=== PATIENT | female | born 1970 | race Caucasian/White ===

== ENCOUNTER → 2017-10-06 | Outpatient (CLI) | payer BC ==
[~2017-10-06] MED LIST: PEDICHW53 PO
--- NOTE | 2017-10-06 09:37 | DIAGNOSTIC IMAGING REPORT ---
L SHOULDER MIN 2 VIEWS ROUTINE HISTORY: 47 years-old Female M25.512 acute left shoulder pain COMPARISON: None available TECHNIQUE: 3 views of the left shoulder FINDINGS: Mild glenohumeral and acromioclavicular osteoarthritis. There is no acute fracture, dislocation or intra-articular loose body identified. Imaged soft tissues and lung espinosa appear unremarkable. IMPRESSION: Mild degenerative changes without acute fracture or dislocation. The above report was generated using voice recognition software. It may contain grammatical, syntax or spelling errors. Electronically signed by: Juan Powell M.D. 10/06/2017 9:35 AM Dictated Date/Time: 10/06/2017 9:34 AM
--- NOTE | 2017-10-06 09:39 | DIAGNOSTIC IMAGING REPORT ---
SI JOINTS 3 OR MORE VIEWS HISTORY: 47 years-old Female HIP PAIN acute right hip and sacroiliac pain. COMPARISON: None available TECHNIQUE: 3 views of the SI joints FINDINGS: There are mild degenerative changes of the bilateral sacroiliac joints and pubic symphysis. No evidence of erosive sacroiliitis. There is no acute fracture or dislocation. Surgical clips project over the pelvis. Degenerative changes of the lower lumbar spine are noted. Probable phleboliths of the pelvis. IMPRESSION: Mild degenerative changes of the sacroiliac joints without acute fracture, dislocation or sacroiliitis. The above report was generated using voice recognition software. It may contain grammatical, syntax or spelling errors. Electronically signed by: Juan Powell M.D. 10/06/2017 9:37 AM Dictated Date/Time: 10/06/2017 9:36 AM
[2017-10-09 20:20] LABS: ANTI-CENTROMERE AB <1.0 NEG AI (<1.0 NEG); ANTI-SS-A <1.0 NEG AI (<1.0 NEG); ANTI-SS-B <1.0 NEG AI (<1.0 NEG); DNA ds CRITHIDIA NEGATIVE (NEGATIVE); HLA-B27** TC 528X NEGATIVE (NEGATIVE); Sm Antibody <1.0 NEG AI (<1.0 NEG)
== END | disposition home or self-care (01) ==
LOC: C.RAD1850 09:14
PROVIDERS: ATTEND Internal Medicine Rheumatology
DX: M25.512 Pain in left shoulder (principal)

== ENCOUNTER → 2017-10-19 | Outpatient (CLI) | payer BC ==
--- NOTE | 2017-10-19 18:17 | DIAGNOSTIC IMAGING REPORT ---
SI JOINTS WITHOUT CLINICAL HISTORY: 47 years-old Female presenting with M53.3 Pain of right sacroiliac joint. TECHNIQUE: Multisequence, multiplanar MR imaging of the sacroiliac joints was performed without the use of intravenous contrast. IV contrast: None. COMPARISON: Plain radiographs of the sacroiliac joints from 10/06/2017. FINDINGS: Localizer images: Unremarkable. The bilateral sacroiliac joints do not contain fluid. No bone marrow edema. No evidence of erosion or fusion. Normal bone marrow signal intensity throughout the visualized pelvis. Mild degenerative changes, including osteophytosis better appreciated on prior radiograph. Normal appearance of the sciatic nerves. Visualized soft tissues of the pelvis demonstrate large stool burden in the rectum and both in cysts in the cervix. IMPRESSION: No MR evidence of abnormality of the sacroiliac joints. No sacroiliitis. Electronically signed by: Irvin Melgoza M.D. 10/19/2017 6:16 PM Dictated Date/Time: 10/19/2017 6:12 PM
== END | disposition home or self-care (01) ==
LOC: C.MRI 17:00 → MERGE 17:30
PROVIDERS: ATTEND Internal Medicine Rheumatology
DX: M53.3 Sacrococcygeal disorders, not elsewhere classified (principal)

== ENCOUNTER → 2017-10-28 | Outpatient (CLI) | payer BC ==
--- NOTE | 2017-10-28 18:47 | DIAGNOSTIC IMAGING REPORT ---
MRI OF THE LEFT SHOULDER CLINICAL HISTORY: Left shoulder pain. Decreased range of motion. Unspecified immunologic abnormality. COMPARISON STUDY: Radiographs of the left shoulder dated 10/06/2017. TECHNIQUE: MRI of the left shoulder was performed utilizing various T1 and T2 weighted sequences in the axial, sagittal, coronal planes. IV contrast was not administered for this examination. FINDINGS: Rotator cuff: The supraspinatus and intraspinous tendons are preserved. The teres minor and subscapularis tendons are intact. There is no subacromial or subdeltoid bursal fluid. Mild productive degenerative change is seen at the acromioclavicular joint. Biceps tendon: The long head of the biceps tendon is normal in signal intensity and located within the bicipital groove. The anchor is maintained. Labrum: Grossly intact. Shoulder joint: There is no joint effusion. The articular cartilage over the glenoid is well maintained. No erosive change is identified. No significant marrow edema is seen. Musculature and soft tissues: The musculature of the shoulder is normal in bulk and signal intensity. No atrophy is seen. IMPRESSION: 1. The rotator cuff is intact. 2. The long head of the biceps tendon is maintained. 3. No acute bony abnormality is seen. 4. Productive degenerative change is noted at the acromioclavicular joint. Electronically signed by: Romulo Hernandez M.D. 10/28/2017 6:45 PM Dictated Date/Time: 10/28/2017 6:40 PM
== END | disposition home or self-care (01) ==
LOC: C.MRI 17:47
PROVIDERS: ATTEND Internal Medicine Rheumatology
DX: M25.512 Pain in left shoulder (principal); M47.818 Spondylosis without myelopathy or radiculopathy, sacral and sacrococcygeal region; M35.7 Hypermobility syndrome; R89.4 Abnormal immunological findings in specimens from other organs, systems and tissues

== ENCOUNTER → 2018-01-04 | Day surgery (SDC) | payer BC ==
[2017-12-15 07:48] VITALS: Ht 149.9 cm; Wt 68.2 kg
[~2018-01-04] VITALS: Ht 149.9 cm; Wt 68.2 kg
[~2018-01-04] MED LIST changes: +ATROPINE SULFATE 0.1 MG/ML 5ML SYR IV PRN; +BUPIVACAINE/EPINEPHRINE 0.25% 1:200,000 30 ML VIAL ONE; +CEFAZOLIN 2000MG IV PUSH 15 ML IV SCH; +CHOL1000 PO; +CLR10 PO; +CYAN10005 PO; +DEXAMETHASONE SOD INJ 4 MG/ML VIAL ONE; +EpHEDrine SULFATE INJ 50 MG/ML AMP IV PRN; +EpINEphrine INJ 1MG/ML AMP 1 MG/ML AMP ONE; +FENTANYL CITRATE INJ 50 MCG/1 ML 2 ML VIAL IV PRN; +FENTANYL CITRATE INJ 50 MCG/1 ML 2 ML VIAL ONE; +FEXO1TAB45 PO; +LACTATED RINGER'S 1000ML 1,000 ML IV SCH; +LIDOCAINE HCL 2% 2 ML VIAL (20MG/ML) ONE; +METHYLPREDNISOLONE ACETATE 80 MG/ML VIAL ONE; +MIDAZOLAM HCL 1 MG/ML 2ML VIAL ONE; +MoRPHine SULFATE 2 MG/ML CARP IV PRN; +MoRPHine SULFATE 4 MG/ML 1 ML CARP\\VIAL IV PRN; +ONDANSETRON INJ 2 MG/ML 2 ML VIAL IV PRN; +ONDANSETRON INJ 2 MG/ML 2 ML VIAL ONE; +OXYCODONE/ACETAMINOPHEN 5-325 TAB PO PRN; +PROMETHAZINE HCL INJ 6.25 MG in SODIUM CHLORIDE 0.9% 50ML 50 ML IV PRN; +PROPOFOL IV EMULSION 10 MG/ML 20 ML VIAL IV ONE; +SCOPOLAMINE 1.5 MG TDSY TD ONE; +SODIUM CHLORIDE 0.9% 1000ML 1,000 ML IV SCH
--- NOTE | 2018-01-04 06:47 | History & Physical Bridge - SC ---
H&P Re-Evaluation Bridge Note: I have examined the patient, reviewed the History & Physical and in the interval since the performance of the History & Physical I have noted the following changes of clinical significance: No changes noted
--- NOTE | 2018-01-04 09:58 | [facility] Post Operative Brief Note ---
Immediate Operative Summary Operative Date Jan 04, 2018. Pre-Operative Diagnosis Left Shoulder Subacromial Spur, Bursitis Post-Operative Diagnosis same and partial thickness supraspinatus tear Procedure(s) Performed Left shoulder arthroscopic debridement of partial thickness supraspinatus tear, subacromial bursectomy and decompression Surgeon Dr. Chloé Wolfe Yield Engineer Surgeon(s) Alessio Samuels Pa-C, Nimco Carmona, Medical Student Estimated Blood Loss 10 Findings Consistent with Post-Op Diagnosis Fluids (cc crystalloids) 1100 cc Specimens none Drains None Anesthesia Type General Regional Complication(s) none Disposition Accompanied Pt To Recovery: no Disposition: Recovery Room / PACU
--- NOTE | 2018-01-04 10:29 | [facility] Operative Report ---
Operative Report Operative Date Jan 04, 2018. Pre-Operative Diagnosis Left shoulder arthroscopic subacromial decompression, debridement partial thickenss rotator cuff tear Post-Operative Diagnosis same and partial thickness supraspinatus tear Procedure(s) Performed Left shoulder arthroscopic debridement of partial thickness supraspinatus tear, subacromial bursectomy and decompression Surgeon Dr. Chloé Wolfe Chain Pegger Surgeon(s) Alessio Samuels Pa-C, Nimco Carmona, Medical Student Estimated Blood Loss 10ML Fluids 1100 cc Specimens none Drains None Anesthesia Type General Regional Complication(s) none Disposition no Recovery Room / PACU I attest to the content of the Intraoperative Record and any orders documented therein. Any exceptions are noted below.
--- NOTE | 2018-01-04 10:31 | Medical Student: [facility] ---
Immediate Operative Summary Operative Date Jan 04, 2018. Pre-Operative Diagnosis Left shoulder bursitis and subacromial spur Post-Operative Diagnosis L shoulder bursitis, subacromial spur, partial thickness supraspinatus tear Procedure(s) Performed Arthroscopy of the left shoulder with debridement of the partial thickness supraspinatus tear and subacromial bursectomy and decompression Surgeon Dr. Wolfe Strategic Consultant Surgeon(s) GAGE Samuels PA-C and Nimco Carmona, medical student Estimated Blood Loss 10cc Findings Partial thickness left supraspinatus tear Hemorrhagic bursitis in the left subacromial space Left subacromial spur Fluids (cc crystalloids) 1100cc Specimens No specimens collected Drains None Anesthesia General with regional block Complication(s) None Disposition Recovery Room / PACU
--- NOTE | 2018-01-04 10:35 | Discharge Instructions ---
Discharge Instructions Date of Service Jan 04, 2018. Admission Reason for Admission: Left Shoulder Subacromial Spur; Bursitis Discharge Discharge Diagnosis / Problem: Same as above & partial thickness tear of supraspinatus Discharge Goals Goal(s): Decrease discomfort, Improve function, Increase independence Activity Recommendations Activity Limitations: as noted below Lifting Limitations: until after follow-up appointment Exercise/Sports Limitations: until after follow-up appointment May Resume Sexual Activity: when tolerated Shower/Bathe: tomorrow, keep incision dry Driving or Machine Use: Not until cleared by provisioning specialist Weightbearing Status: Left non-weightbearing (Upper extremity until protocol given in PT tomorrow) . Instructions / Follow-Up Instructions / Follow-Up Post-operative Instructions Dear Patient and Family/Friends, Before you are discharged from the hospital, it is important to know what to expect when you get home after surgery. To that end, we have created this sheet of discharge instructions which covers many commonly asked questions. Make sure you go through this sheet in its entirety with your nurse before you are discharged. Please note that we will go over the specifics of your surgery and recovery when you return for your first post-operative visit. Sincerely, Dr. Wolfe Pain Expect to be in a fair amount of pain after surgery. Remember, our goal is not to eliminate your pain, but to make it tolerable. It is a good idea to stay ahead of your pain by taking the medications you were prescribed once you get home. Typically, the pain starts improving 3-7 days after surgery. You should start weaning off the narcotic pain medication (oxycodone, hydrocodone, hydromorphone, morphine) as soon as your pain improves. Please call our office if your pain is not adequately controlled. Ice Ice your operative site at least 5 times a day for 15-30 minutes at a time. Make sure you have a thin cloth between the ice or cooling unit and your skin to prevent lyman bite. This is especially important if you received a nerve block. Continue icing your operative site for the first 5-7 days after surgery , then as needed. Diet/Nausea/Vomiting Start by drinking clear liquids and eating crackers. If you can tolerate this, then you may resume your normal diet. If you feel nauseated or vomit, take Zofran/ondansetron (if prescribed). Please call our office if you have intractable nausea or vomiting, or, if after hours, you may go to the Emergency Room for help. Constipation Constipation is a common side effect of narcotic pain medication. If you have not had a bowel movement within 2 days after surgery, we recommend purchasing an over the counter laxative such as Milk of Magnesia, Dulcolax, or Miralax from a local pharmacy, and taking it as instructed. Call our clinic if any questions. Slings and Braces If you were placed in a sling or brace, it must be worn at all times, including sleep. You may remove your sling or brace for physical therapy, home exercises , and showering. The length of time you will be in your brace and range of motion restrictions depends on what surgery you had; these details will be reviewed at your first post-operative appointment. Nerve block The anesthesia team sometimes places a nerve block to help with post-operative pain control. This results in significant numbness and inability to move the extremity. The nerve block usually wears off in 8-12 hours, but sometimes can last up to 24 hours. Please call our office if you are still unable to move your extremity after 24 hours, unless you received a pain pump to take home. Nerve blocks typically wear off quickly, so start taking pain medication as soon as you start feeling soreness near your surgical site. Weight bearing and Range of Motion. Do not bear any weight through your operative extremity immediately after surgery. If you had upper extremity surgery, do not lift anything with that arm. If you are in a knee brace, keep it locked in place until your follow-up. We will discuss your weight bearing, range of motion, and lifting restrictions in detail at your first post-operative appointment. Continuous Passive Motion (CPM) Machine If you were prescribed a CPM machine, it will start after your first post- operative appointment, at which time we will give you instructions on the range of motion settings and duration of treatment Physical therapy You will be given a prescription for physical therapy or occupational therapy at your first post-operative appointment. Typically, patients start therapy within 1 week of surgery Wound care and showering We will inspect your wound at your first post-operative visit, and may do a dressing change at that time. Most patients will be in a water-proof dressing that is removed 14 days after surgery. It is normal to see some dried blood on the dressing. Do not remove your dressing, paper strips or sutures yourself unless you are given permission. Showering is allowed the day after surgery. Do not scrub or remove any dressings. The wound should not be submerged underwater (i.e. in a bathtub or pool) until 4 weeks after surgery MARBELLA stockings If you were given white stockings, these are to be worn at all times except to shower (on both legs) for the first 2 weeks after surgery. Driving You may not drive while taking narcotic pain medication or while in a cast, splint, sling or brace. You, the patient, need to make the final determination about when you are safe to drive, however, the earliest you may consider driving after surgery is below: Hand/Wrist/Elbow Surgery: 3 days Shoulder Surgery: 2 weeks Hip,/Knee/Ankle Surgery: 4 weeks Fracture repair: 6 weeks Return to Work Your return to work depends on what surgery was done and what type of work you do. Please bring any paperwork your employer needs completed to your first post -operative visit. Also, bring a description of your job duties, as this helps us to understand what risks you may face at work. Travel Avoid long distance travel (greater than 1 hour) in airplanes and cars for the first 6 weeks after surgery. If you must travel, you need to have a Doppler ultrasound done before you travel to rule out a blood clot in your legs. Follow-up You should have a follow-up appointment already scheduled 1-2 days after surgery. If not, please contact our office to make this appointment before you leave the hospital. When to call the office It is normal to have swelling and bruising in the limb that was operated on. This will improve with time. It is also normal to have fevers for the first 2 days after surgery. Reasons you should call your doctor include: Uncontrolled pain; Nausea, vomiting, or constipation that does not improve with medication; Fevers over 101.5, chills, sweats; Drainage or bleeding from the wound; Foul odor; Spreading areas of redness; Any other concerns Current Hospital Diet Patient's current hospital diet: Discharge Diet Recommended Diet: Regular Diet Procedures Procedures Performed: Left shoulder arthroscopic debridement of partial thickness supraspinatus tear, subacromial bursectomy and decompression Pending Studies Studies pending at discharge: no Medical Emergencies . Who to Call and When: Medical Emergencies: If at any time you feel your situation is an emergency, please call 911 immediately. . Non-Emergent Contact Non-Emergency issues call your: Primary Care Provider Call Non-Emergent contact if: you have a fever, temperature is above 101.5, your pain is not controlled, your pain is worsening, wound has increased drainage, you have any medication questions . "Provider Documentation" section prepared by Alessio Samuels. . VTE Core Measure Inpt VTE Proph given/why not?: Other Anticoagulation (Aspirin EC 81 mg), T.E.Ana Epstein [place] Drug Monitoring Program Search Results: patient reviewed within database, no issues identified, see additional documentation
--- NOTE | 2018-01-04 10:38 | OPERATIVE REPORT ---
DATE OF OPERATION: 01/04/2018 PREOPERATIVE DIAGNOSIS: Left shoulder subacromial bursitis and spur. POSTOPERATIVE DIAGNOSES: Same and partial thickness supraspinatus tear. OPERATIONS PERFORMED: 1. Debridement of partial thickness supraspinatus tear. 2. Subacromial bursectomy with subacromial decompression of the spur. SURGEON: Irvin Wolfe MD. ASSISTANTS: RUBEN Stern and Nimco Carmona. IV FLUIDS: 1100 mL crystalloid. ESTIMATED BLOOD LOSS: 10 mL. IMPLANTS: None. SPECIMENS: None. COMPLICATIONS: None. INDICATIONS: Ms. Pierson is a 47-year-old female with a medical history of rheumatoid arthritis who has had left shoulder pain that has been refractory to conservative management. I had previously given her a subacromial injection which relieved her pain immediately with the numbing medication; however, the corticosteroid component did not give her any long lasting relief unfortunately. She has gone through physical therapy. She has difficulty with overhead activities. It is affecting her activities of daily living. Her MRI shows some tendinopathy of the supraspinatus, but no full thickness tear as well as a type 2 acromion. I had a long discussion with her about the risks and benefits of surgery, alternatives to surgery and expected outcomes. After reviewing all these she elected to proceed with surgery. All questions were answered. Informed consent was signed. OPERATIVE FINDINGS: 1. The subscapularis tendon was normal. 2. The long head of the biceps tendon was normal. 3. The supraspinatus showed a partial thickness tear along its anterior leading edge involving approximately 1 cm in the anterior to posterior distance and involving approximately 20% of the thickness of the tendon. The infraspinatus was normal. The axillary pouch was normal. 4. The articular cartilage of the glenoid and the humeral head were normal. 5. The glenoid labrum was normal. 6. In the subacromial space, she had significant amount of hemorrhagic bursitis. There was no bursal-sided rotator cuff tearing. She had an anteriorly based subacromial spur. The partial thickness rotator cuff tear on the articular side was gently debrided back to a stable margin with the shaver. The subacromial bursa was removed with the shaver. The subacromial spur was removed with a bur. Due to her underlying rheumatoid arthritis, we injected 80 mg of Depo-Medrol at the conclusion of the case into the subacromial space. DESCRIPTION OF THE OPERATION: The patient was identified in the preoperative holding area where her surgical site was marked. She was given an interscalene block by anesthesia and then brought back to main operating room. She was placed on the operating table and general anesthesia was administered. All bony prominences were padded. She was moved in the lateral decubitus position. Axillary roll was placed. She was then prepped and draped in a normal sterile fashion. Prior to incision, a multidisciplinary timeout was called. All in the room where in agreement. We began by placing the arm in 10 pounds of longitudinal traction with the arm forward flexed 30 degrees and abducted 45 degrees. The arthroscope was placed into the glenohumeral joint. An anterior working portal was created. Diagnostic arthroscopy was performed revealing the above findings. Next, using the arthroscopic shaver, we gently debrided back the anterior leading edge of the supraspinatus where she had a partial thickness rotator cuff tear back to a stable margin. Of note, we did pull the biceps tendon into the glenohumeral joint and there was absolutely no pathology of the biceps tendon with no synovitis or no tearing. Next, the arthroscope was moved into the subacromial space. Significant amount of subacromial bursitis was encountered. A lateral working portal was created. The shaver was used to remove this hemorrhagic bursitis to expose the underlying rotator cuff as well as the acromion. Electrocautery was used to identify the margins of the acromion which clearly showed she had an anteriorly based subacromial spur. The bur was then used to resect this anterior spur converting her from a type 2 to a type 1 acromion. Of note, a marking stitch had been placed through the partial thickness rotator cuff tear when we were in the glenohumeral joint and this was then identified. As stated above, there was no bursal-sided tearing of the rotator cuff. It was palpated with a probe and there was no david thinning. At this point, a spinal needle was inserted percutaneously in the subacromial space. The arthroscope was removed. Portals were closed. We then injected 80 mg of Depo-Medrol into the subacromial space for postoperative pain control as well as to reduce the chance of reformation of hemorrhagic bursitis for her. She was placed into a simple sling. She will return for physical therapy tomorrow to review her restrictions. She will be on aspirin for DVT prophylaxis. I attest to the content of the Intraoperative Record and any orders documented therein. Any exception s are noted below.
[2018-01-04 11:14] VITALS: TEMP 36.7
--- NOTE | 2018-01-04 11:35 | Anesthesia Progress Nt - [facility] ---
Anesthesia Post Op Note Date & Time Jan 04, 2018 at 11:34 Vital Signs Pain Intensity: 0 Vital Signs Past 12 Hours Date Time Temp Pulse Resp B/P (MAP) Pulse Ox O2 Delivery O2 Flow Rate FiO2 01/04/18 11:14 36.7 57 18 139/84 (102) 100 Room Air 01/04/18 11:07 36.9 01/04/18 11:06 126/86 (99) 01/04/18 11:02 50 18 97 01/04/18 11:02 50 18 01/04/18 11:01 138/88 (96) 01/04/18 10:57 58 17 92 01/04/18 10:57 58 17 01/04/18 10:56 118/78 (96) 01/04/18 10:55 Room Air 01/04/18 10:52 48 14 100 01/04/18 10:52 47 14 01/04/18 10:51 157/79 (92) 01/04/18 10:47 48 15 100 01/04/18 10:47 48 15 01/04/18 10:46 142/79 (90) 01/04/18 10:42 56 18 100 01/04/18 10:42 57 18 01/04/18 10:41 140/80 (106) 01/04/18 10:37 55 14 01/04/18 10:37 55 14 100 01/04/18 10:36 138/82 (94) 01/04/18 10:32 67 17 100 01/04/18 10:32 68 17 01/04/18 10:31 148/91 (111) 01/04/18 10:29 133/102 (108) 01/04/18 10:26 36.7 79 16 133/102 98 Diffusion Mask 5 01/04/18 08:36 123/70 01/04/18 08:34 92 01/04/18 08:34 91 0 99 01/04/18 08:33 91 01/04/18 08:33 90 0 99 01/04/18 08:32 94 01/04/18 08:32 93 0 98 01/04/18 08:31 131/71 01/04/18 08:27 86 0 100 01/04/18 08:27 88 01/04/18 08:26 124/73 2/12/18 08:25 86 13 100 01/04/18 08:25 86 01/04/18 08:24 95 14 100 01/04/18 08:24 95 01/04/18 08:21 119/77 01/04/18 08:19 92 21 100 01/04/18 08:19 91 01/04/18 08:16 133/81 01/04/18 08:14 78 01/04/18 08:14 77 100 01/04/18 08:11 128/91 01/04/18 08:09 81 100 01/04/18 08:09 81 01/04/18 08:06 131/80 01/04/18 08:04 86 14 01/04/18 08:01 135/88 01/04/18 07:59 55 01/04/18 07:59 55 0 98 01/04/18 07:54 58 0 98 01/04/18 07:54 62 01/04/18 07:49 55 0 100 01/04/18 07:49 55 01/04/18 07:44 61 0 100 01/04/18 07:44 60 01/04/18 07:39 65 01/04/18 07:39 67 0 100 01/04/18 07:34 77 0 99 01/04/18 07:34 76 01/04/18 07:29 60 01/04/18 07:29 60 0 98 01/04/18 07:24 54 0 98 01/04/18 07:24 54 01/04/18 07:19 55 0 98 01/04/18 07:19 55 01/04/18 07:14 53 0 98 01/04/18 07:14 53 01/04/18 07:09 57 0 98 01/04/18 07:09 57 01/04/18 07:04 71 19 01/04/18 07:04 19 01/04/18 06:39 36.4 57 16 162/85 (110) 100 Room Air Notes Mental Status: alert / awake / arousable, participated in evaluation Pt Amnestic to Procedure: Yes Nausea / Vomiting: adequately controlled Pain: adequately controlled Airway Patency, RR, SpO2: stable & adequate BP & HR: stable & adequate Hydration State: stable & adequate Anesthetic Complications: no major complications apparent Block working well in pacu
[2018-01-04 11:48] VITALS: BP 123/78; PULSE 59; O2SAT 99
== END | disposition home or self-care (01) ==
LOC: X.SURG 06:26
PROVIDERS: ATTEND Orthopaedic Surgery
DX: M75.52 Bursitis of left shoulder (principal); M75.92 Shoulder lesion, unspecified, left shoulder; I10 Essential (primary) hypertension; E53.8 Deficiency of other specified B group vitamins; Z82.49 Family history of ischemic heart disease and other diseases of the circulatory system; Z82.3 Family history of stroke; Z98.84 Bariatric surgery status

== ENCOUNTER → 2018-02-17 | Outpatient (CLI) | payer BC ==
[~2018-02-17] MED LIST changes: -ATROPINE SULFATE 0.1 MG/ML 5ML SYR IV PRN; -BUPIVACAINE/EPINEPHRINE 0.25% 1:200,000 30 ML VIAL ONE; -CEFAZOLIN 2000MG IV PUSH 15 ML IV SCH; -CLR10 PO; -DEXAMETHASONE SOD INJ 4 MG/ML VIAL ONE; -EpHEDrine SULFATE INJ 50 MG/ML AMP IV PRN; -EpINEphrine INJ 1MG/ML AMP 1 MG/ML AMP ONE; -FENTANYL CITRATE INJ 50 MCG/1 ML 2 ML VIAL IV PRN; -FENTANYL CITRATE INJ 50 MCG/1 ML 2 ML VIAL ONE; -LACTATED RINGER'S 1000ML 1,000 ML IV SCH; -LIDOCAINE HCL 2% 2 ML VIAL (20MG/ML) ONE; -METHYLPREDNISOLONE ACETATE 80 MG/ML VIAL ONE; -MIDAZOLAM HCL 1 MG/ML 2ML VIAL ONE; -MoRPHine SULFATE 2 MG/ML CARP IV PRN; -MoRPHine SULFATE 4 MG/ML 1 ML CARP\\VIAL IV PRN; -ONDANSETRON INJ 2 MG/ML 2 ML VIAL IV PRN; -ONDANSETRON INJ 2 MG/ML 2 ML VIAL ONE; -OXYCODONE/ACETAMINOPHEN 5-325 TAB PO PRN; -PROMETHAZINE HCL INJ 6.25 MG in SODIUM CHLORIDE 0.9% 50ML 50 ML IV PRN; -PROPOFOL IV EMULSION 10 MG/ML 20 ML VIAL IV ONE; -SCOPOLAMINE 1.5 MG TDSY TD ONE; -SODIUM CHLORIDE 0.9% 1000ML 1,000 ML IV SCH
== END | disposition home or self-care (01) ==
LOC: C.PAPS 13:44
PROVIDERS: ATTEND Obstetrics & Gynecology
DX: Z01.419 Encounter for gynecological examination (general) (routine) without abnormal findings (principal)

== ENCOUNTER → 2018-02-17 | Outpatient (CLI) | payer BC | END | disposition home or self-care (01) | LOC: C.RDSM 09:57 | PROVIDERS: ATTEND Orthopaedic Surgery | DX: Z98.890 Other specified postprocedural states (principal) ==

== ENCOUNTER 2022-12-12 17:37 | Observation (INO) ==
[2022-12-12 18:29] LABS: Basophils # (auto) 0.06 K/uL (0-0.2); Basophils % (auto) 0.4 %; Eosinophils # (auto) 0.01 K/uL (0-0.50); Eosinophils % (auto) 0.1 %; Hematocrit (blood only) 50.6 % (34.1-44.9); Hemoglobin 17.6 g/dl (12.0-16.0); Immature Granulocytes # (auto) 0.07 K/uL (0.00-0.02); Immature Granulocytes % (auto) 0.4 %; Lymphocytes % (auto) 5.3 %; Mean Corpuscular Hemoglobin 31.8 pg (25.0-34.0); Mean Corpuscular Hgb Conc 34.8 g/dL (32.0-36.0); Mean Corpuscular Volume 91.5 fL (80.0-100.0); Mean Platelet Volume 9.3 fL (9.4-12.3); Monocytes # (auto) 0.85 K/uL (0.24-0.82); Neutrophils # (auto) 15.21 K/uL (1.4-6.5); Neutrophils % (auto) 88.8 %; Platelet Count 339 K/uL (130-400); RDW Standard Deviation 43.6 fL (36.4-46.3); Red Blood Count 5.53 M/uL (3.93-5.22)
[2022-12-12 18:53] LABS: Albumin Globulin Ratio 1.4 (0.9-2); Albumin Level 4.2 gm/dl (3.4-5.0); BUN Creatinine Ratio 9.9 (10-20); Bilirubin,Total 0.9 mg/dl (0.2-1.0); Calcium 9.5 mg/dl (8.5-10.1); Creatinine Clr Calc Pharmacy 62.3 ml/min; Est GFR (African American) 85.3 ml/min; Est GFR (Non-African American) 73.6 ml/min; Globulin 3.1 gm/dl (2.5-4.0); Potassium 4.2 mmol/L (3.5-5.1); Total Protein 7.3 gm/dl (6.0-8.3)
[2022-12-12] MEDS ORDERED: SODIUM CHLORIDE 0.9% 1000ML 1,000 ML IV ONE (21:00)
[2022-12-12] MEDS ORDERED: OPTIRAY 350 100ml IV ONE (21:18)
[2022-12-12 21:23] LABS: Influenza A virus by PCR Negative (Neg); Influenza B virus by PCR Negative (Neg); RSV by PCR Negative (Neg); SARS CoV2 RNA(COVID-19) Ceph NEGATIVE (Negative)
--- NOTE | 2022-12-12 21:39 | CT Scan Report ---
ABDOMEN AND PELVIS CT WITH IV CONTRAST CT DOSE: 363.89 mGy.cm HISTORY: Acute generalized abdominal pain eval for diverticulitis TECHNIQUE: Multiaxial CT images of the abdomen and pelvis were performed following the IV administrat ion of 84 cc of Optiray, A dose lowering technique was utilized adhering to the principles of ALARA. COMPARISON STUDY: 11/08/2019 FINDINGS: No acute process of the imaged lower chest. No pneumatosis or pneumoperitoneum. Unremarkabl e spleen, pancreas and adrenal glands. Cholecystectomy. Probable cyst of the right hepatic lobe on im age 26, 9 mm. Mild likely postoperative biliary ductal dilation. The liver is otherwise within normal limits. Patent portal vein. Unremarkable kidneys. No hydronephrosis. Partial distention of the urinary bladder. Unremarkable uter us with bilateral tubo-ovarian occlusion devices. There is questioned bilateral hydrosalpinx. Aorta a nd IVC are unremarkable. No lymphadenopathy. From Marcos-en-Y gastric bypass. There is circumferential wall thickening throughout the majority of the colon and rectum with mucosal hyperemia and mild peric olonic stranding. The appendix is not definitively seen. Scattered small bowel air-fluid levels. No a cute fracture. Intact. IMPRESSION: 1. No bowel obstruction or pneumoperitoneum. 2. Findings compatible with a nonspecific likely infectious or inflammatory pancolitis. 3. Additional findings as above. ACT 112: Negative or not required by law. The above report was generated using voice recognition software. It may contain grammatical, syntax o r spelling errors. Electronically signed by: Sharath Powell M.D. 12/12/2022 9:37 PM
[2022-12-12] MEDS ORDERED: DICYCLOMINE HCL 10 MG CAP PO ONE (23:12)
[2022-12-13 02:07] LABS: Adenovirus F 40/41 PCR Not Detected (NotDetected); Astrovirus PCR Not Detected (NotDetected); Campylobacter PCR Not Detected (NotDetected); Cryptosporidium PCR Not Detected (NotDetected); Cyclospora cayetanensis PCR Not Detected (NotDetected); Entamoeba histolytica PCR Not Detected (NotDetected); Enteroaggregative E.coli(EAEC) Not Detected (NotDetected); Enteropathogenic E.coli (EPEC) Not Detected (NotDetected); Enterotoxigenic E.coli (ETEC) Not Detected (NotDetected); Giardia lamblia PCR Not Detected (NotDetected); Norovirus GI/GII PCR Not Detected (NotDetected); Plesiomonas shigelloides PCR Not Detected (NotDetected); Rotavirus A PCR Not Detected (NotDetected); Salmonella PCR Not Detected (NotDetected); Sapovirus PCR Not Detected (NotDetected); Shiga-like Toxin E.coli (STEC) Not Detected (NotDetected); Shigella/Enteroinvasive E.coli Not Detected (NotDetected); Vibrio cholerae PCR Not Detected (NotDetected); Vibrio species PCR Not Detected (NotDetected); Yersinia enterocolitica PCR Not Detected (NotDetected)
[2022-12-13] MEDS ORDERED: SODIUM CHLORIDE 0.9% 500 ML IV SCH (02:30)
--- NOTE | 2022-12-13 03:03 | History & Physical Report ---
Date of Service December 13, 2022 Assessment & Plan (1) Pancolitis: (2) GERD (gastroesophageal reflux disease): (3) Bloody diarrhea: (4) Hx of gastric bypass: (5) Neuropathy: Plan Pancolitis/bloody diarrhea- NPO Stool PCR negative C. difficile gene testing negative Pantoprazole 40 mg IV daily Zofran 4 mg IV every 6 hours as needed Levsin 0.125 mg sublingual every 4 hours as needed abdominal cramping Flagyl 500 mg IV every 8 hours Consult gastroenterology Neuropathy- Resume gabapentin after improvement in symptoms Status post gastric bypass 2011- Resume vitamin D 3 supplement, vitamin B-12 supplement and multivitamin after improvement in symptoms Allergy symptoms- Resume fexofenadine after improvement in symptoms History of Present Illness Chief Complaint: The patient presents to the emergency department with 1 day of frequent loose stools at about 1 hour intervals accompanied by crampy abdominal pain, and then became bloody bowel movements over the past 24 hours with the same frequency. Primary Care Provider: Radhika Kc MD The patient is a 52-year-old female with a past medical history including vitamin D deficiency, vitamin B12 deficiency, allergy symptoms, peripheral neuropathy and GERD. She presents with symptoms as noted above. She denies any questionable food intakes. She denies any recent travels or sick exposures. CT scan of abdomen and pelvis in the emergency department showed a hemorrhagic pancolitis, likely either infectious or inflammatory. Her stool PCR test was negative. C. difficile gene testing was negative. Allergies Allergy/AdvReac Type Severity Reaction Status Date / Time amoxicillin Allergy "SKIN Verified 12/12/22 20:51 CRAWLING" SEVERE ITCHING codeine AdvReac Unknown ABDOMINAL Verified 12/12/22 20:51 PAIN AND SOB Home Medications Medication Instructions Recorded Confirmed Type omeprazole 20 mg tablet,delayed 20 mg PO DAILY PRN GERD 11/08/18 12/12/22 History release cyanocobalamin (vitamin B-12) 1,000 mcg IM .EVERY 3 MONTHS 11/08/19 12/12/22 History 1,000 mcg/mL injection solution fexofenadine 180 mg tablet 180 mg PO QPM 11/08/19 12/12/22 History (Lia Allergy) calcium citrate 200 mg 2 tab PO TID 12/12/22 12/12/22 History calcium-vitamin D3 6.25 mcg (250 unit) tablet (Citracal-D3 Petites) gabapentin 100 mg capsule 100 mg PO [facility] 12/12/22 12/12/22 History dgyqgyzb-meelams-fpwa-iron 18 1 tab PO DAILY 12/12/22 12/12/22 History mg-FA 400 mcg-vit K 25 mcg tablet (One-A-Day Women's Complete) Past Med/Surg History Medical History (Updated 12/13/22 @ 04:46 by Prakash Haider MD) Chronic back pain Environmental allergies GERD (gastroesophageal reflux disease) Neuropathy Surgical History (Updated 12/13/22 @ 04:46 by Prakash Haider MD) History of endometrial ablation Hx of gastric bypass 2011 [facility] [place] Hx of gastric bypass Hx of shoulder surgery left Hx of tubal ligation Family History Father Rheumatoid arthritis Malignant melanoma Hypertension Alcoholism Mother Hypertension Arthritis Social History Smoking Status: Never smoker Cigarettes Per Day: QUIT IN 2009; Second Hand Exposure: No; Hx Alcohol Use: Yes Alcohol type: wine Hx Substance Use: No Preferred Language: Nepali Communication Ability: Effective Digital Tech Required: No Beliefs That Will Affect Care: None Current Living Situation: Spouse Other Information That Helps Us Care for You: No Feels Safe at Home: Yes Safety Concerns: Feels Safe At This Time Assistive Devices: None Review of Systems Review of Systems: The patient denies chest pain, palpitations, shortness of breath, dyspnea on exertion, cough, lower extremity swelling, sore throat, fevers, chills, sweats, weight change, fatigue, nausea, vomiting, blood in urine, dysuria, urinary frequency or urgency, lightheadedness, dizziness, headache, memory loss, loss of consciousness, rash, imbalance, focal or generalized weakness, numbness or tingling in arms or legs, generalized arthralgias or myalgias, back or neck pain, or night sweats. The review of systems is otherwise negative other than for that already noted above, and at least 10 systems have been reviewed. Physical Exam Physical Exam: The patient is awake, alert and oriented 3, well developed and well nourished, normocephalic and atraumatic, lying in bed and in no acute distress. HEENT--PERRL, EOMI, mucous membranes and oropharynx dry. Neck--supple. No JVD. No bruits. Thyroid normal, trachea midline, no adenopathy. Heart--normal S1 and S2. No murmurs, rubs or gallops. Lungs--clear bilaterally, no respiratory distress, no accessory muscle use. Abdomen--normal bowel sounds and soft. Mild generalized discomfort. Nondistended, no hernias or masses, no organomegaly. Extremities--no cyanosis or clubbing. No edema. Dermatologic--normal skin turgor, normal color, no abnormal lymph nodes, no rash. Neurologic--cranial nerves II through XII grossly intact. Rheumatologic--normal range of motion. Psychiatric--normal affect. Results & Data Results & Data ([facility]) Vital Signs (Past 12 Hours) Vital Signs Temp Pulse Pulse Resp BP BP Pulse Ox 12/13/22 01:00 58 L 16 159/95 H 98 12/12/22 20:50 67 18 145/83 H 98 12/12/22 17:41 36.5 C 77 19 157/101 H 99 O2 Del Method 12/13/22 01:00 12/12/22 20:50 Room Air 12/12/22 17:41 Room Air Laboratory Results Laboratory Results WBC 17.10 K/ul (4.8-10.8) H 12/12/22 18:14 RBC 5.53 M/uL (3.93-5.22) H 12/12/22 18:14 Hgb 17.6 g/dl (12.0-16.0) H 12/12/22 18:14 Hct 50.6 % (34.1-44.9) H 12/12/22 18:14 MCV 91.5 fL (80.0-100.0) 12/12/22 18:14 MCH 31.8 pg (25.0-34.0) 12/12/22 18:14 MCHC 34.8 g/dL (32.0-36.0) 12/12/22 18:14 RDW Std Deviation 43.6 fL (36.4-46.3) 12/12/22 18:14 RDW Coeff of [place] 13.0 % (11.5-14.5) 12/12/22 18:14 Plt Count 339 K/uL (130-400) 12/12/22 18:14 MPV 9.3 fL (9.4-12.3) L 12/12/22 18:14 Immature Gran % (Auto) 0.4 % 12/12/22 18:14 Neut % (Auto) 88.8 % 12/12/22 18:14 Lymph % (Auto) 5.3 % 12/12/22 18:14 Andrew % (Auto) 5.0 % 12/12/22 18:14 Eos % (Auto) 0.1 % 12/12/22 18:14 Baso % (Auto) 0.4 % 12/12/22 18:14 Neut # (Auto) 15.21 K/uL (1.4-6.5) H 12/12/22 18:14 Lymph # (Auto) 0.90 K/uL (1.2-3.4) L 12/12/22 18:14 Andrew # (Auto) 0.85 K/uL (0.24-0.82) H 12/12/22 18:14 Eos # (Auto) 0.01 K/uL (0-0.50) 12/12/22 18:14 Baso # (Auto) 0.06 K/uL (0-0.2) 12/12/22 18:14 Immature Gran # (Auto) 0.07 K/uL (0.00-0.02) H 12/12/22 18:14 Sodium 137 mmol/L (136-145) 12/12/22 18:14 Potassium 4.2 mmol/L (3.5-5.1) 12/12/22 18:14 Chloride 103 mmol/L (98-107) 12/12/22 18:14 Carbon Dioxide 26 mmol/L (21-32) 12/12/22 18:14 Anion Gap 8 (3-11) 12/12/22 18:14 BUN 9 mg/dl (6-23) 12/12/22 18:14 Creatinine 0.91 mg/dl (0.6-1.2) 12/12/22 18:14 Est Cr Clr Drug Dosing 62.3 ml/min 12/12/22 18:14 Est GFR ( Amer) 85.3 ml/min 12/12/22 18:14 Est GFR (Non-Af Amer) 73.6 ml/min 12/12/22 18:14 BUN/Creatinine Ratio 9.9 (10-20) L 12/12/22 18:14 Glucose 125 mg/dl (70-99(Fasting)) H 12/12/22 18:14 Calcium 9.5 mg/dl (8.5-10.1) 12/12/22 18:14 Total Bilirubin 0.9 mg/dl (0.2-1.0) 12/12/22 18:14 AST 21 U/L (13-39) 12/12/22 18:14 ALT 14 U/L (7-52) 12/12/22 18:14 Alkaline Phosphatase 79 U/L (34-104) 12/12/22 18:14 Total Protein 7.3 gm/dl (6.0-8.3) 12/12/22 18:14 Albumin 4.2 gm/dl (3.4-5.0) 12/12/22 18:14 Globulin 3.1 gm/dl (2.5-4.0) 12/12/22 18:14 Albumin/Globulin Ratio 1.4 (0.9-2) 12/12/22 18:14 Lipase 36 U/L (11-82) 12/12/22 18:14 Stl C. cayetanensis PCR Not Detected (NotDetected) 12/12/22 21:43 Stool Rotavirus A PCR Not Detected (NotDetected) 12/12/22 21:43 Stl Adenov F 40/41 PCR Not Detected (NotDetected) 12/12/22 21:43 Stool Astrovirus (PCR) Not Detected (NotDetected) 12/12/22 21:43 Stool Campylobacter PCR Not Detected (NotDetected) 12/12/22 21:43 Stl C. diff Tox B Gene Negative Cdiff Gene (Neg) 12/12/22 21:43 Stool Cryptosporidium PCR Not Detected (NotDetected) 12/12/22 21:43 Stl E.coli Shiga Tox PCR Not Detected (NotDetected) 12/12/22 21:43 Stl Enterotoxigenic E PCR Not Detected (NotDetected) 12/12/22 21:43 Stool EPEC (PCR) Not Detected (NotDetected) 12/12/22 21:43 Stool EAEC (PCR) Not Detected (NotDetected) 12/12/22 21:43 Stl E. histolytica PCR Not Detected (NotDetected) 12/12/22 21:43 Stool Giardia Lamblia PCR Not Detected (NotDetected) 12/12/22 21:43 Stool Salmonella PCR Not Detected (NotDetected) 12/12/22 21:43 Stool Sapovirus (PCR) Not Detected (NotDetected) 12/12/22 21:43 Stl P. shigelloides PCR Not Detected (NotDetected) 12/12/22 21:43 Stl Shigella/EIEC PCR Not Detected (NotDetected) 12/12/22 21:43 St Y.enterocolitica PCR Not Detected (NotDetected) 12/12/22 21:43 Stool Vibrio (PCR) Not Detected (NotDetected) 12/12/22 21:43 Stl Vibrio cholerae PCR Not Detected (NotDetected) 12/12/22 21:43 Stl Norovirus GI/GII PCR Not Detected (NotDetected) 12/12/22 21:43 SARS-CoV-2 (PCR) NEGATIVE (Negative) 12/12/22 20:36 Influenza Type A (PCR) Negative (Neg) 12/12/22 20:36 Influenza Type B (PCR) Negative (Neg) 12/12/22 20:36 RSV (RT-PCR) Negative (Neg) 12/12/22 20:36 Impressions Abdomen/Pelvis CT 12/12/22 21:[address] WITH IV CONTRAST CT DOSE: 363.89 mGy.cm HISTORY: Acute generalized abdominal pain eval for diverticulitis TECHNIQUE: Multiaxial CT images of the abdomen and pelvis were performed following the IV administration of 84 cc of Optiray, A dose lowering technique was utilized adhering to the principles of ALARA. COMPARISON STUDY: 11/08/2019 FINDINGS: No acute process of the imaged lower chest. No pneumatosis or pneumoperitoneum. Unremarkable spleen, pancreas and adrenal glands. Cholecystectomy. Probable cyst of the right hepatic lobe on image 26, 9 mm. Mild likely postoperative biliary ductal dilation. The liver is otherwise within normal limits. Patent portal vein. Unremarkable kidneys. No hydronephrosis. Partial distention of the urinary bladder. Unremarkable uterus with bilateral tubo-ovarian occlusion devices. There is questioned bilateral hydrosalpinx. Aorta and IVC are unremarkable. No lymphadenopathy. From Marcos-en-Y gastric bypass. There is circumferential wall thickening throughout the majority of the colon and rectum with mucosal hyperemia and mild pericolonic stranding. The appendix is not definitively seen. Scattered small bowel air-fluid levels. No acute fracture. Intact. IMPRESSION: 1. No bowel obstruction or pneumoperitoneum. 2. Findings compatible with a nonspecific likely infectious or inflammatory pancolitis. 3. Additional findings as above. ACT 112: Negative or not required by law. The above report was generated using voice recognition software. It may contain grammatical, syntax or spelling errors. Electronically signed by: Sharath Powell M.D. 12/12/2022 9:37 PM Code Status & VTE Plan Code Status Full code VTE Prophylaxis Plan VTE Prophylaxis will be ordered: Yes PG Care Time/CCT Total # of Minutes Spent Total Time Spent with Patient: Total time spent is greater than 50% in coordination of care (as documented) at patient's floor/unit and/or counseling patient: Coding Level of Care Code 21121 INT INP/OBS CARE 2/55MIN Diagnoses Pancolitis K51.00 GERD (gastroesophageal reflux disease) K21.9 Bloody diarrhea R19.7 Hx of gastric bypass Z98.84 Neuropathy G62.9
--- NOTE | 2022-12-13 03:04 | Emergency Department Note ---
Impression & Plan Acute GI bleeding, Diarrhea, Pancolitis Admit to the [facility] ED Provider Note NAME: JUAN MILLARD AGE: 52 SEX: F ARRIVES VIA: Walk-In INFORMANT: Patient ED PROVIDER(S): Marie Auguste DO CHIEF COMPLAINT: Bloody diarrhea and crampy abdominal pain PLAN: Disposition: Admit to the [facility] Condition: Stable MEDICAL DECISION MAKING: This is a 52-year-old female patient presents to the emergency department with a fairly sudden onset of bloody diarrhea and lower abdominal pain. Patient has history of gastric bypass from many years ago but no other acute GI history. She does have a family history of diverticulitis in her mother and brother. Patient has never had a colonoscopy or self. Laboratory studies reveal significant leukocytosis. Chemistries revealed no obvious dehydration or electrolyte abnormality. There is no LISA. Stool bio fire was completely negative. Patient produced multiple bloody stools while here in the emergency department. C. difficile testing is pending. Patient was given 1 dose of dicyclomine and vomited shortly after. After review of the information above and other included data, I feel the patient will require fur ther inpatient care. [facility] for [facility] management. Triage Nursing notes reviewed and agree with them.. Additional history obtained from the patient's who is at the bedside Vital Signs: reviewed and unremarkable Differential diagnosis: C. difficile, pancolitis, diverticulitis, foodborne illness, viral GI illness ER treatment provided: Cardiac monitoring IV normal saline bolus IV normal saline drip Oral dicyclomine Diagnostics interpreted by me: Cardiac Monitoring: Normal sinus rhythm at 74 Laboratory studies: See below Imaging studies: As per radiology Portable chest x-ray: See report CT scan of the abdomen/pelvis: See report HPI: 52/F arrives for evaluation of bloody diarrhea and crampy abdominal pain. Patient developed diarrhea around 2 PM yesterday afternoon. The lower abdominal cramping became more intense throughout the day today and then the stools became bloody. Patient denies ever having symptoms like this in the past. She has no significant GI history other than gastric bypass in the early . Patient does have a family history of diverticulitis in her mother and brother. They both also suffered from C. difficile. PAST MEDICAL HISTORY:See Below PAST SURGICAL HISTORY:See Below FAMILY HISTORY:See Below SOCIAL HISTORY:See Below HOME MEDICATIONS: See list ALLERGIES: See list VITALS:See Below PHYSICAL EXAMINATION: HEENT: Head - normocephalic and atraumatic Pupils are equal, round, and reactive to light. Extraocular eye muscles are intact, and sclera are anicteric. Nose - moist nasal mucosa without discharge. Mouth - moist buccal mucosa. Oropharynx is nonerythematous and there is no tonsillar exudate or edema noted. Neck: Supple; no JVD, nuchal rigidity, cervical lymphadenopathy. Heart: Regular rate and rhythm. There is a normal S1 and S2 with no murmurs, clicks, or gallops appreciated. Lungs: Clear to auscultation bilaterally with no wheezes, rales, or rhonchi. Abdomen: Soft, mildly tender to palpation in the suprapubic region. Rest of the abdomen is nondistended, with good bowel sounds. There are no palpable pulsatile masses or hepatosplenomegaly. There is no guarding, rigidity, or rebound noted. Extremities: No evidence of cyanosis, clubbing, or edema. There are easily palpable peripheral pulses. Skin: warm and dry with good turgor and no rashes. ED COURSE: Times/Reassessments: 2039 patient was evaluated in room C2. A complete history and physical was performed. Nursing protocol performed laboratory studies were obtained. An IV lock was initiated and labs were drawn as above. Order was placed for continuous cardiac monitoring. The patient was in a normal sinus rhythm at a rate of 74. Patient was bolused with IV normal saline solution. Patient a portable chest x- ray performed. She went for CT scan of the abdomen/pelvis. A stool specimen was collected. Patient was given an oral dose of dicyclomine. Sometime just after this, the p atient had an episode of vomiting. I reviewed patient testing results with her and her . I then discussed the case with the [facility] Hospitalist. Marie Auguste DO Past Med/Surg History Medical History (Updated 12/13/22 @ 17:26 by Marie Auguste DO) Chronic back pain Environmental allergies GERD (gastroesophageal reflux disease) Neuropathy Surgical History (Updated 12/13/22 @ 04:46 by Prakash Haider MD) History of endometrial ablation Hx of gastric bypass 2011 - [facility] Hx of gastric bypass Hx of shoulder surgery left Hx of tubal ligation Family History Father Rheumatoid arthritis Malignant melanoma Hypertension Alcoholism Mother Hypertension Arthritis Social History Smoking Status: Never smoker Cigarettes Per Day: QUIT IN 2009; Second Hand Exposure: No; Hx Alcohol Use: Yes Alcohol type: wine Hx Substance Use: No Preferred Language: Ethiopian Communication Ability: Effective Finance Consultant Required: No Beliefs That Will Affect Care: None Current Living Situation: Spouse Other Information That Helps Us Care for You: No Feels Safe at Home: Yes Safety Concerns: Feels Safe At This Time Assistive Devices: None Allergies Allergies Allergy/AdvReac Type Severity Reaction Status Date / Time amoxicillin Allergy "SKIN Verified 12/12/22 20:51 CRAWLING" SEVERE ITCHING codeine AdvReac Unknown ABDOMINAL Verified 12/12/22 20:51 PAIN AND SOB Home Meds Home Medications Medication Instructions Recorded Confirmed omeprazole 20 mg tablet,delayed 20 mg PO DAILY PRN GERD 11/08/18 12/12/22 release cyanocobalamin (vitamin B-12) 1,000 mcg IM .EVERY 3 MONTHS 11/08/19 12/12/22 1,000 mcg/mL injection solution fexofenadine 180 mg tablet 180 mg PO QPM 11/08/19 12/12/22 (Lia Allergy) calcium citrate 200 mg 2 tab PO TID 12/12/22 12/12/22 calcium-vitamin D3 6.25 mcg (250 unit) tablet (Citracal-D3 Petites) gabapentin 100 mg capsule 100 mg PO AMHS 12/12/22 12/12/22 mjdexypv-brlhiui-nccv-iron 18 1 tab PO DAILY 12/12/22 12/12/22 mg-FA 400 mcg-vit K 25 mcg tablet (One-A-Day Women's Complete) Previous Rx's Medication Instructions Recorded hyoscyamine sulfate 0.125 mg tablet 0.125 mg sublingual Q6H #10 tabs 12/13/22 Results & Data (ED) Vital Signs Vital Signs - 24 hr 12/12/22 17:41 12/12/22 20:50 12/13/22 01:00 Temperature 36.5 C Temperature Source Temporal Artery Scan Pulse Rate 77 Pulse Rate [Apical] 67 58 L Pulse Rhythm [Apical] Regular Pulse Strength [Apical] Normal Respiratory Rate 19 18 16 Respiratory Effort / Characteristics Non-Labored Respiratory Depth Normal Respiratory Pattern Regular Blood Pressure 157/101 H Blood Pressure [Right Arm] 145/83 H 159/95 H Blood Pressure Mean 119 Blood Pressure Mean [Right Arm] 103 116 Pulse Oximetry 99 98 98 Oxygen Delivery Method Room Air Room Air Sepsis Recent Fever Within 48 Hours No Sepsis New/Unexplained Change in Mental Status N/A Sepsis Action Taken by Nursing No Action Required Laboratory Data 12/12/22 18:14 12/12/22 18:14 Lab Results 12/12/22 12/12/22 12/12/22 Range/Units 18:14 18:14 20:36 WBC 17.10 H (4.8-10.8) K/ul RBC 5.53 H (3.93-5.22) M/uL Hgb 17.6 H (12.0-16.0) g/dl Hct 50.6 H (34.1-44.9) % MCV 91.5 (80.0-100.0) fL MCH 31.8 (25.0-34.0) pg MCHC 34.8 (32.0-36.0) g/dL RDW Std Deviation 43.6 (36.4-46.3) fL RDW Coeff of Quinton 13.0 (11.5-14.5) % Plt Count 339 (130-400) K/uL MPV 9.3 L (9.4-12.3) fL Immature Gran % (Auto) 0.4 % Neut % (Auto) 88.8 % Lymph % (Auto) 5.3 % Lynn % (Auto) 5.0 % Eos % (Auto) 0.1 % Baso % (Auto) 0.4 % Neut # (Auto) 15.21 H (1.4-6.5) K/uL Lymph # (Auto) 0.90 L (1.2-3.4) K/uL Lynn # (Auto) 0.85 H (0.24-0.82) K/uL Eos # (Auto) 0.01 (0-0.50) K/uL Baso # (Auto) 0.06 (0-0.2) K/uL Immature Gran # (Auto) 0.07 H (0.00-0.02) K/uL Sodium 137 (136-145) mmol/L Potassium 4.2 (3.5-5.1) mmol/L Chloride 103 (98-107) mmol/L Carbon Dioxide 26 (21-32) mmol/L Anion Gap 8 (3-11) BUN 9 (6-23) mg/dl Creatinine 0.91 (0.6-1.2) mg/dl Est Cr Clr Drug Dosing 62.3 ml/min Est GFR ( Amer) 85.3 ml/min Est GFR (Non-Af Amer) 73.6 ml/min BUN/Creatinine Ratio 9.9 L (10-20) Glucose 125 H (70-99(Fasting)) mg/dl Calcium 9.5 (8.5-10.1) mg/dl Total Bilirubin 0.9 (0.2-1.0) mg/dl AST 21 (13-39) U/L ALT 14 (7-52) U/L Alkaline Phosphatase 79 (34-104) U/L Total Protein 7.3 (6.0-8.3) gm/dl Albumin 4.2 (3.4-5.0) gm/dl Globulin 3.1 (2.5-4.0) gm/dl Albumin/Globulin Ratio 1.4 (0.9-2) Lipase 36 (11-82) U/L Stl C. cayetanensis PCR (NotDetected) Stool Rotavirus A PCR (NotDetected) Stl Adenov F 40/41 PCR (NotDetected) Stool Astrovirus (PCR) (NotDetected) Stool Campylobacter PCR (NotDetected) Stl C. diff Tox B Gene (Neg) Stool Cryptosporidium PCR (NotDetected) Stl E.coli Shiga Tox PCR (NotDetected) Stl Enterotoxigenic E PCR (NotDetected) Stool EPEC (PCR) (NotDetected) Stool EAEC (PCR) (NotDetected) Stl E. histolytica PCR (NotDetected) Stool Giardia Lamblia PCR (NotDetected) Stool Salmonella PCR (NotDetected) Stool Sapovirus (PCR) (NotDetected) Stl P. shigelloides PCR (NotDetected) Stl Shigella/EIEC PCR (NotDetected) St Y.enterocolitica PCR (NotDetected) Stool Vibrio (PCR) (NotDetected) Stl Vibrio cholerae PCR (NotDetected) Stl Norovirus GI/GII PCR (NotDetected) SARS-CoV-2 (PCR) NEGATIVE (Negative) Influenza Type A (PCR) Negative (Neg) Influenza Type B (PCR) Negative (Neg) RSV (RT-PCR) Negative (Neg) 12/12/22 12/12/22 Range/Units 21:43 21:43 WBC (4.8-10.8) K/ul RBC (3.93-5.22) M/uL Hgb (12.0-16.0) g/dl Hct (34.1-44.9) % MCV (80.0-100.0) fL MCH (25.0-34.0) pg MCHC (32.0-36.0) g/dL RDW Std Deviation (36.4-46.3) fL RDW Coeff of Quinton (11.5-14.5) % Plt Count (130-400) K/uL MPV (9.4-12.3) fL Immature Gran % (Auto) % Neut % (Auto) % Lymph % (Auto) % Lynn % (Auto) % Eos % (Auto) % Baso % (Auto) % Neut # (Auto) (1.4-6.5) K/uL Lymph # (Auto) (1.2-3.4) K/uL Lynn # (Auto) (0.24-0.82) K/uL Eos # (Auto) (0-0.50) K/uL Baso # (Auto) (0-0.2) K/uL Immature Gran # (Auto) (0.00-0.02) K/uL Sodium (136-145) mmol/L Potassium (3.5-5.1) mmol/L Chloride (98-107) mmol/L Carbon Dioxide (21-32) mmol/L Anion Gap (3-11) BUN (6-23) mg/dl Creatinine (0.6-1.2) mg/dl Est Cr Clr Drug Dosing ml/min Est GFR ( Amer) ml/min Est GFR (Non-Af Amer) ml/min BUN/Creatinine Ratio (10-20) Glucose (70-99(Fasting)) mg/dl Calcium (8.5-10.1) mg/dl Total Bilirubin (0.2-1.0) mg/dl AST (13-39) U/L ALT (7-52) U/L Alkaline Phosphatase (34-104) U/L Total Protein (6.0-8.3) gm/dl Albumin (3.4-5.0) gm/dl Globulin (2.5-4.0) gm/dl Albumin/Globulin Ratio (0.9-2) Lipase (11-82) U/L Stl C. cayetanensis PCR Not Detected (NotDetected) Stool Rotavirus A PCR Not Detected (NotDetected) Stl Adenov F 40/41 PCR Not Detected (NotDetected) Stool Astrovirus (PCR) Not Detected (NotDetected) Stool Campylobacter PCR Not Detected (NotDetected) Stl C. diff Tox B Gene Negative Cdiff Gene (Neg) Stool Cryptosporidium PCR Not Detected (NotDetected) Stl E.coli Shiga Tox PCR Not Detected (NotDetected) Stl Enterotoxigenic E PCR Not Detected (NotDetected) Stool EPEC (PCR) Not Detected (NotDetected) Stool EAEC (PCR) Not Detected (NotDetected) Stl E. histolytica PCR Not Detected (NotDetected) Stool Giardia Lamblia PCR Not Detected (NotDetected) Stool Salmonella PCR Not Detected (NotDetected) Stool Sapovirus (PCR) Not Detected (NotDetected) Stl P. shigelloides PCR Not Detected (NotDetected) Stl Shigella/EIEC PCR Not Detected (NotDetected) St Y.enterocolitica PCR Not Detected (NotDetected) Stool Vibrio (PCR) Not Detected (NotDetected) Stl Vibrio cholerae PCR Not Detected (NotDetected) Stl Norovirus GI/GII PCR Not Detected (NotDetected) SARS-CoV-2 (PCR) (Negative) Influenza Type A (PCR) (Neg) Influenza Type B (PCR) (Neg) RSV (RT-PCR) (Neg) Administered Medications Acetaminophen (Acetaminophen 1000 Mg/100 Ml Iv) 1,000 mg IV Q8H PRN PRN Reason: Pain or Fever Stop: 12/16/22 04:23 Last Admin: 12/13/22 13:39 Dose: 1,000 mg Documented By: Admin: 12/13/22 04:35 Dose: 1,000 mg Documented By: CARLOS Potassium Chloride/Sodium Chloride (Normal Saline W/20 Meq Kcl) 20 meq in 1,000 mls @ 100 mls/hr IV .Q10H CHANDRA; Protocol Stop: 01/12/23 04:59 Last Admin: 12/13/22 16:18 Dose: 100 mls/hr Documented By: Infusion: 12/13/22 14:53 Dose: 100 mls/hr Documented By: Admin: 12/13/22 04:53 Dose: 100 mls/hr Documented By: CARLOS Pantoprazole Sodium 40 mg/ (Syringe) 10 mls @ 5 mls/min IV DAILY@1100 CHANDRA Stop: 01/12/23 10:59 Last Admin: 12/13/22 09:05 Dose: 5 mls/min Documented By: JOI Discontinued Medications Dicyclomine HCl (Dicyclomine Hcl 10 Mg Cap) 20 mg PO NOW ONE Stop: 12/12/22 23:13 Last Admin: 12/12/22 23:19 Dose: 20 mg Documented By: MORENA Hyoscyamine (Hyoscyamine Sulfate 0.125 Mg Tab) 0.125 mg SL Q4H PRN PRN Reason: Cramping Stop: 01/12/23 03:12 Last Admin: 12/13/22 13:37 Dose: 0.125 mg Documented By: Admin: 12/13/22 09:05 Dose: 0.125 mg Documented By: Admin: 12/13/22 05:01 Dose: 0.125 mg Documented By: CARLOS Sodium Chloride (Nss 1000ml) 1,000 mls @ 999 mls/hr IV .Q1H1M ONE Stop: 12/12/22 22:00 Last Infusion: 12/12/22 22:41 Dose: 0 mls/hr Documented By: Admin: 12/12/22 21:27 Dose: 999 mls/hr Documented By: JOE Sodium Chloride (Nss) 500 mls @ 125 mls/hr IV .Q4H CHANDRA Stop: 01/12/23 02:29 Last Admin: 12/13/22 04:40 Dose: Not Given Documented By: CARLOS Metronidazole (Flagyl) 500 mg in 100 mls @ 100 mls/hr IV Q8H CHANDRA Stop: 12/23/22 04:59 Last Infusion: 12/13/22 06:08 Dose: 0 mls/hr Documented By: Admin: 12/13/22 04:53 Dose: 100 mls/hr Documented By: CARLOS Ioversol (Optiray 350 100ml) 84 ml IV ONCE ONE Stop: 12/12/22 21:19 Last Admin: 12/12/22 21:19 Dose: 84 ml Documented By: RUY Imaging Data Radiologist's Impression: Abdomen/Pelvis CT 12/12/22 21:[address] WITH IV CONTRAST CT DOSE: 363.89 mGy.cm HISTORY: Acute generalized abdominal pain eval for diverticulitis TECHNIQUE: Multiaxial CT images of the abdomen and pelvis were performed following the IV administration of 84 cc of Optiray, A dose lowering technique was utilized adhering to the principles of ALARA. COMPARISON STUDY: 11/08/2019 FINDINGS: No acute process of the imaged lower chest. No pneumatosis or pneumoperitoneum. Unremarkable spleen, pancreas and adrenal glands. Cholecystectomy. Probable cyst of the right hepatic lobe on image 26, 9 mm. Mild likely postoperative biliary ductal dilation. The liver is otherwise within normal limits. Patent portal vein. Unremarkable kidneys. No hydronephrosis. Partial distention of the urinary bladder. Unremarkable uterus with bilateral tubo-ovarian occlusion devices. There is questioned bilateral hydrosalpinx. Aorta and IVC are unremarkable. No lymphadenopathy. From Marcos-en-Y gastric bypass. There is circumferential wall thickening throughout the majority of the colon and rectum with mucosal hyperemia and mild pericolonic stranding. The appendix is not definitively seen. Scattered small bowel air-fluid levels. No acute fracture. Intact. IMPRESSION: 1. No bowel obstruction or pneumoperitoneum. 2. Findings compatible with a nonspecific likely infectious or inflammatory pancolitis. 3. Additional findings as above. ACT 112: Negative or not required by law. The above report was generated using voice recognition software. It may contain grammatical, syntax or spelling errors. Electronically signed by: Sharath Powell M.D. 12/12/2022 9:37 PM Discharge Plan Visit Data Chief Complaint: Diarrhea Stated Complaint: SEVERE STOMACH PAINS,DIARREAH ED Provider: Marie Auguste Discharge Problem: Acute GI bleeding, Diarrhea, Pancolitis Patient Disposition: Admitted As Inpatient Discharge Instructions Interventions: ED Discharge Assessment Last Done: 12/13/22 04:10 : Diarrhea Qualifiers: Diarrhea type: unspecified type Qualified Code(s): R19.7 - Diarrhea, unspecified
[2022-12-13] MEDS ORDERED: ONDANSETRON INJ 2 MG/ML 2 ML VIAL IV PRN (04:24)
[2022-12-13] MEDS: ACETAMINOPHEN 1000 MG/100 ML IV IV PRN ×2 (04:35→13:39)
[2022-12-13] MEDS: NSS + 20MEQ KCL 20 MEQ/1,000 ML BAG IV SCH ×2 (04:53→16:18)
[2022-12-13] MEDS ORDERED: metroNIDAZOLE 500 MG/100 ML BAG IV SCH (05:00)
[2022-12-13] MEDS: HYOSCYAMINE SULFATE 0.125 MG TAB SL PRN ×3 (05:01→13:37)
--- NOTE | 2022-12-13 08:20 | Hospitalist Progress Note ---
Date of Service December 13, 2022 Assessment & Plan (1) Pancolitis: Plan: 52-year-old female with history of Marcos-en-Y gastric bypass in 2011 who presents for approximately 24-48 hours of initially frequent (~q1h) loose/watery diarrhea, with subsequent transition into bloody diarrhea of the same frequency. Her CT-A/P demonstrates pancolitis. Pancolitis, Diarrhea - Approx. 24-48 hours of initially watery diarrhea with subsequent transition into bloody diarrhea - Work-up as follows: -- WBC 17.1 (though hemoconcentration strongly suspected) w/ shift, +lymphopenia, +monocytosis -- C. diff gene NEGATIVE, stool biofire NEGATIVE, COVID/Flu/RSV negative -- LFTs normal -- CT-A/P with pancolitis - infectious vs. inflammatory -- Dietary history, travel history: no obvious culprit/contribution - Primary suspicion is this started as non-inflammatory, likely viral diarrhea, but with frequency of diarrhea induced a stress proctocolitis resulting in bloody BMs. Also on differential includes inflammatory-infectious diarrhea (including C. diff), IBD (though acuity rules against this) - Continue Protonix, Zofran, Levsin for abdominal cramping - Aggressive IVF w/ KCl and Mg replacements as needed - Consider GI consult if ongoing diarrhea requires need for scoping ; will need screening colonoscopy as outpatient after a few weeks have passed - Monitor CBC, lytes given ongoing bloody diarrhea Neuropathy - Continue gabapentin when appropriate Status-post Marcos-en-Y Bypass (2011) - Vitamin D3, B12, MVI when appropriate Allergies - Continue SGA when appropriate Code: Full Dispo: MS Diet: clear liquid trial PPX: SCDs, pharmacologic contraindicated w/ bloody diarrhea (2) GERD (gastroesophageal reflux disease): (3) Hx of gastric bypass: Admission and Anticipated Discharge Date Admission Date: December 13, 2022 Supervising Physician Co-Signing Physician Notes I personally examined the patient and verified all collier points of history and exam, discussed case, and agree with decision making with Dr Corey. Ate clear liquidsthen had profuse diarrhea. Fortunately none since over the last few hours. No further blood either. Vitals noted, in general she is awake and alert pleasant no distress. HEENT normocephalic atraumatic mucous membranes moist. Breathing unlabored no accessory muscle use good effort. Skin shows no rashes no pallor or icterus. Abdomen soft moderately tender throughout no guarding rebound or rigidity Pancolitis with hematocheziasuspect infectious, have seen several cases of what appears to be an infectious pancolitis recently. Fortunately hemodynamically stable. Retry clear liquids, advance as tolerated. No clear need for antibiotics at this time, but serial examsif she shows any changes, resume. Otherwise as above. Subjective NAEO. Symptoms began afternoon. initially brown BMs with some green, watery with +cramping. Occurring q1h, if not more frequent. Kept her up all night into Thursday. On Thursday afternoon, began having BRBpR associated with BMs. Endorses cramping/some rectal pain with BMs. No n/v. Endorses h/o hemorrhoids- but this doesn't feel like that to her. Denies any pork, raw meat, poultry consumption. No c/o food poisoning to her. No FHX of IBD, notes +FHX of diverticulitis. No fevers, chills. No respiratory illness. Feeling better since last night with ongoing antispasmodic. Feeling kind of hungry. Really wants to try drinking Review of Systems Review of Systems: as per HPI Physical Exam Physical Exam: General: 52-year old female who is alert, oriented, and appears in no acute distress. HEENT: NCAT. - Eyes - Sclera are white, anicteric, and without injection. - Mouth - Dry MM - Neck - supple, no appreciable JVD Cardiac: Normal rate and regular rhythm; S1 and S2 present with no murmurs, rubs, or gallops. Pulmonary: Good respiratory effort with symmetric expansion of the chest. No use of accessory muscles. Lungs were clear to auscultation bilaterally with no crackles or wheezes. Abdominal: Normoactive bowel sounds. Abdomen was soft, nondistended, but +TTP in the LLQ radiating towards the suprapubic region Extremities: Upper and lower extremities are warm and well perfused. No peripheral edema in the lower extremities bilaterally Psych: Well-developed, well-nourished, appropriately dressed for occasion. Behavior is cooperative and appropriate. Affect is WNL. Insight is appropriate. Results & Data Results & Data ([facility]) Vital Signs (Past 12 Hours) Vital Signs Temp Pulse Pulse Resp BP Pulse Ox O2 Del Method 12/13/22 07:06 36.9 C 67 16 132/76 97 Room Air 12/13/22 04:30 36.7 C 60 18 152/84 H 99 Room Air 12/13/22 04:00 57 L 18 167/91 H 99 Room Air 12/13/22 03:51 Room Air 12/13/22 01:00 58 L 16 159/95 H 98 12/12/22 20:50 67 18 145/83 H 98 Room Air Resident Activity Tracking Resident Involvement: Resident Care Provided Care Provided: Adult Hospital Medicine
[2022-12-13] MEDS: PANTOprazole 40 MG in SYRINGE 0 ML IV SCH (09:05)
[2022-12-13] MEDS ORDERED: ACETAMINOPHEN 325 MG TAB PO PRN (12:58)
[2022-12-13] MEDS ORDERED: MELATONIN 3 MG TAB PO PRN (12:58)
--- NOTE | 2022-12-13 13:13 | Discharge Summary ---
Date of Service December 14, 2022 Admission HPI Per Admitting Provider The patient is a 52-year-old female with a past medical history including vitamin D deficiency, vitamin B12 deficiency, allergy symptoms, peripheral neuropathy and GERD. She presents with symptoms as noted above. She denies any questionable food intakes. She denies any recent travels or sick exposures. CT scan of abdomen and pelvis in the emergency department showed a hemorrhagic pancolitis, likely either infectious or inflammatory. Her stool PCR test was negative. C. difficile gene testing was negative. Admission Exam Per Admitting Provider The patient is awake, alert and oriented 3, well developed and well nourished, normocephalic and atraumatic, lying in bed and in no acute distress. HEENT--PERRL, EOMI, mucous membranes and oropharynx dry. Neck--supple. No JVD. No bruits. Thyroid normal, trachea midline, no adenopathy. Heart--normal S1 and S2. No murmurs, rubs or gallops. Lungs--clear bilaterally, no respiratory distress, no accessory muscle use. Abdomen--normal bowel sounds and soft. Mild generalized discomfort. Nondistended, no hernias or masses, no organomegaly. Extremities--no cyanosis or clubbing. No edema. Dermatologic--normal skin turgor, normal color, no abnormal lymph nodes, no rash. Neurologic--cranial nerves II through XII grossly intact. Rheumatologic--normal range of motion. Psychiatric--normal affect. Principal Diagnosis pancolitis Discharge Exam General: 52-year old female who is alert, oriented, and appears in no acute distress. HEENT: NCAT. - Eyes - Sclera are white, anicteric, an d without injection. - Mouth - Dry MM - Neck - supple, no appreciable JVD Cardiac: Normal rate and regular rhythm; S1 and S2 present with no murmurs, rubs, or gallops. Pulmonary: Good respiratory effort with symmetric expansion of the chest. No use of accessory muscles. Lungs were clear to auscultation bilaterally with no crackles or wheezes. Abdominal: Normoactive bowel sounds. Abdomen was soft, nondistended, but +TTP in the LLQ radiating towards the suprapubic region Extremities: Upper and lower extremities are warm and well perfused. No peripheral edema in the lower extremities bilaterally Psych: Well-developed, well-nourished, appropriately dressed for occasion. Behavior is cooperative and appropriate. Affect is WNL. Insight is appropriate. Discharge Data Allergies Allergy/AdvReac Type Severity Reaction Status Date / Time amoxicillin Allergy "SKIN Verified 12/12/22 20:51 CRAWLING" SEVERE ITCHING codeine AdvReac Unknown ABDOMINAL Verified 12/12/22 20:51 PAIN AND SOB Consultations 12/13/22 02:30 ED Decision to Admit Stat Ordered Studies 12/12/22 21:00 CT Abd and Pelvis [CT abd pelvis IV con only] Stat ABDOMEN AND PELVIS CT WITH IV CONTRAST CT DOSE: 363.89 mGy.cm HISTORY: Acute generalized abdominal pain eval for diverticulitis TECHNIQUE: Multiaxial CT images of the abdomen and pelvis were performed following the IV administration of 84 cc of Optiray, A dose lowering technique was utilized adhering to the principles of ALARA. COMPARISON STUDY: 11/08/2019 FINDINGS: No acute process of the imaged lower chest. No pneumatosis or pneumoperitoneum. Unremarkable spleen, pancreas and adrenal glands. Cholecystectomy. Probable cyst of the right hepatic lobe on image 24, 9 mm. Mild likely postoperative biliary ductal dilation. The liver is otherwise within normal limits. Patent portal vein. Unremarkable kidneys. No hydronephrosis. Partial distention of the urinary bladder. Unremarkable uterus with bilateral tubo-ovarian occlusion devices. There is questioned bilateral hydrosalpinx. Aorta and IVC are unremarkable. No lymphadenopathy. From Marcos-en-Y gastric bypass. There is circumferential wall thickening throughout the majority of the colon and rectum with mucosal hyperemia and mild pericolonic stranding. The appendix is not definitively seen. Scattered small bowel air-fluid levels. No acute fracture. Intact. IMPRESSION: 1. No bowel obstruction or pneumoperitoneum. 2. Findings compatible with a nonspecific likely infectious or inflammatory pancolitis. 3. Additional findings as above. Hospital Course (1) Pancolitis: 52-year-old female with history of Marcos-en-Y gastric bypass in 2011 and hemorrhoids who presents for approximately 24-48 hours of initially frequent (~q1h) loose/watery diarrhea, with subsequent transition into bloody diarrhea of the same frequency. Her CT-A/P demonstrates pancolitis. Her overall clinical picture is consistent with a viral colitis complicated by stress proctocolitis, resulting in bleeding that subsequently stabilized. Pancolitis, Diarrhea - Approx. 24-48 hours of initially watery diarrhea with subsequent transition into bloody diarrhea in the context of pancolitis on CT and several similar cases seen in the community - Work-up as follows: -- Admission WBC 17.1 (though hemoconcentration strongly suspected) w/ shift, +lymphopenia, +monocytosis -- C. diff gene NEGATIVE, stool biofire NEGATIVE, COVID/Flu/RSV negative -- LFTs normal -- CT-A/P with pancolitis - infectious vs. inflammatory -- Dietary history, travel history: no obvious culprit/contribution - Primary suspicion is this started as non-inflammatory, likely viral diarrhea, but with frequency of diarrhea induced a stress proctocolitis resulting in bloody BMs. Lower suspicion for false-negative inflammatory-infectious diarrhea (including C. diff) or IBD (though acuity rules against this). Thankfully, demonstrated progressive and incremental improvement prior to discharge. Will need colonoscopy within next few weeks for screening, but also cross-purposed for this issue. - Continue judicious use of Levsin q8h for abdominal cramping -- avoid regular Imodium - Was treated with aggressive IVF - Will need (screening) colonoscopy as outpatient after a few weeks have passed Neuropathy - Continue gabapentin when appropriate Status-post Marcos-en-Y Bypass (2011) - Vitamin D3, B12, MVI when appropriate Allergies - Continue SGA when appropriate Code: Full (2) GERD (gastroesophageal reflux disease): (3) Hx of gastric bypass: Total Time Total Time Spent Total Time Spent (In Minutes): <30 Discharge Plan Discharge Items Patient Disposition: Home - Self-Care Reason For Visit: HEMORRHAGIC PANCOLITIS Discharge Diagnosis: pancolitis Activity: Per Instructions section Non-emergency contact: Primary Care Provider Call non-emergency contact if: your symptoms worsen, your pain is worsening, your pain is unusual for you and your temperature is above 101 Follow-up/Referrals: Radhika Kc MD [Primary Care Provider] - Diet: Regular Addtl Attending Provider Instructions: You were seen at [facility] for evaluation of persistent diarrhea with blood. Upon your arrival, you underwent several studies to determine the cause of your symptoms. You underwent testing which demonstrated signs of inflammation within the colon. We primarily suspect that your symptoms are due to a viral infection that likely resulted in localized irritation of the terminal bowel, resulting in small "tears" (from the frequent bowel movements) that caused bleeding -- similar to if skin is scratched too much, it makes you bleed. Your stool studies did not show evidence of a bacterial infection or C. diff. Thankfully, you demonstrated persistent improvement while here to a point we feel comfortable with you managing at home. You should continue getting better over the next few days. It is critical you stay hydrated during your recovery. Aim to consume at least 3L of fluid daily. You may advance your diet as you feel comfortable. Start with small sips and bites of drinks/foods you think you can tolerate. If an hour to pass without any development of symptoms, you can try slowly progressing into bigger and more solid foods. It would not be abnormal if somewhere along this way, you do develop recurrent diarrhea. Goal here is to ensure that you are progressively improving and hovering around a "line of best fit " --listen to your body while also gently pushing it forward with regards to diet. If, within several days, you still have not produced a bowel movement (but aren't nausea and ARE passing gas), you can initiate 1 cap of MiraLax once or twice daily. Remember to stay well hydrated. Incrementally increase your MiraLax dose (e.g., 1-2 cap twice daily) if needed. Please note the following medication changes/additions/deletions: - Levsin 0.125mg (sublingual) every 6-8 hours as needed for severe bowel spasms. Please remember that this slows down bowel movement and, if taken too much, may cause delay in the passage of any infectious material, which could theoretically worsen the infection. Take judiciously. - Please do not regularly use Imodium or other antidiarrheal medications during your recovery unless discussed with your PCP first. Please follow-up with your PCP within 14 days; call their office to arrange a follow-up. In the interim, if you experience worsening abdominal pain, progressive and firm abdominal distention, nausea, vomiting, inability to tolerate food/drink, uncontrollable diarrhea, worsening bleeding with BMs, not passing gas with progressive abdominal distention, lightheadedness, dizziness, or other worrisome symptoms, please report to the ED immediately for evaluation. We wish you all the best in your recovery. Pending Studies at Discharge: No Stand-Alone Forms: My [facility] FIRE1, Smoking Cessation Medications and DC Order Prescriptions: New hyoscyamine sulfate 0.125 mg Tablet 0.125 mg sublingual Q6H Qty: 10 0RF Continued omeprazole 20 mg Tablet,Delayed Release (Dr/Ec) 20 mg PO DAILY PRN (Reason: GERD) fexofenadine [Lia Allergy] 180 mg Tablet 180 mg PO QPM cyanocobalamin (vitamin B-12) 1,000 mcg/mL solution 1,000 mcg IM .EVERY 3 MONTHS gabapentin 100 mg Capsule 100 mg PO [facility] One-A-Day Women's Complete 18 mg-400 mcg- 25 mcg Tablet 1 tab PO DAILY calcium citrate-vitamin D3 [Citracal-D3 Petites] 200 mg-6.25 mcg (250 unit) Tablet 2 tab PO TID Discharge Orders: Discharge Order (Routine); Ordered 12/14/22 Ordered By: Jin Hernandez/Other Patient Handouts: ED Diarrhea, Viral (Adult) Admission Data Admit Date/Time: 12/13/22 03:02 Attending Provider: Jin Arias Admit Provider: Prakash Haider Primary Care Provider: Radhika Kc Other Providers: Prakash Haider Other Interventions: Discharge Summary Assessment (RN) Last Done: 12/14/22 12:17 Supervising Physician Co-Signing Physician Notes I personally examined the patient and verified all collier points of history and exam, discussed case, and agree with decision making with Dr Corey. No further diarrhea, eating reasonably well. Belly feeling much better. Vitals noted, in general she is awake and alert pleasant no distress. HEENT normocephalic atraumatic mucous membranes moist. Breathing unlabored no a ccessory muscle use good effort. Skin shows no rashes no pallor or icterus. Abdomen soft non-tender throughout no guarding rebound or rigidity Pancolitis with hematocheziasuspect infectious, have seen several cases of what appears to be an infectious pancolitis recently. Improving, stable for home. Outpatient follow-up. Resident Activity Tracking Resident Involvement: Resident Care Provided Care Provided: Adult Hospital Medicine
[2022-12-13] MEDS ORDERED: HYOSCYAMINE SULFATE 0.125 MG TAB SL PRN ×2 (14:49→15:29)
--- NOTE | 2022-12-13 19:23 | Billing Data ---
Date of Service December 13, 2022 Coding Level of Care Code 08134 SUB INP/OBS CARE MIN
[2022-12-14] MEDS: NSS + 20MEQ KCL 20 MEQ/1,000 ML BAG IV SCH ×2 (02:15→11:48)
[2022-12-14 07:54] LABS: Albumin Level 2.9 gm/dl (3.4-5.0); Bilirubin,Total 0.5 mg/dl (0.2-1.0); Calcium 7.9 mg/dl (8.5-10.1); Magnesium 1.6 mg/dl (1.7-2.4); Potassium 3.9 mmol/L (3.5-5.1)
[2022-12-14 08:00] LABS: Basophils # (auto) 0.06 K/uL (0-0.2); Basophils % (auto) 0.6 %; Hematocrit (blood only) 39.3 % (34.1-44.9); Hemoglobin 13.5 g/dl (12.0-16.0); Immature Granulocytes # (auto) 0.06 K/uL (0.00-0.02); Immature Granulocytes % (auto) 0.6 %; Lymphocytes # (auto) 1.71 K/uL (1.2-3.4); Lymphocytes % (auto) 16.8 %; Mean Corpuscular Hemoglobin 31.5 pg (25.0-34.0); Mean Corpuscular Hgb Conc 34.4 g/dL (32.0-36.0); Mean Corpuscular Volume 91.8 fL (80.0-100.0); Mean Platelet Volume 9.7 fL (9.4-12.3); Monocytes # (auto) 0.85 K/uL (0.24-0.82); Monocytes % (auto) 8.3 %; Neutrophils # (auto) 7.31 K/uL (1.4-6.5); Neutrophils % (auto) 71.7 %; Platelet Count 261 K/uL (130-400); RDW Coefficient of Variation 13.2 % (11.5-14.5); RDW Standard Deviation 44.4 fL (36.4-46.3); Red Blood Count 4.28 M/uL (3.93-5.22); White Blood Count 10.19 K/ul (4.8-10.8)
[2022-12-14 08:04] LABS: Albumin Globulin Ratio 1.7 (0.9-2); BUN Creatinine Ratio 8.8 (10-20); Creatinine Clr Calc Pharmacy 85.5 ml/min; Est GFR (African American) 118.2 ml/min; Globulin 1.7 gm/dl (2.5-4.0); Total Protein 4.6 gm/dl (6.0-8.3)
[2022-12-14] MEDS ORDERED: MAGNESIUM SULFATE / D5W 1 GM/100 ML BAG IV ONE (09:51)
[2022-12-14] MEDS: PANTOprazole 40 MG in SYRINGE 0 ML IV SCH (11:48)
--- NOTE | 2022-12-14 18:00 | Billing Data ---
Date of Service December 14, 2022 Coding Level of Care Code HOSP INP/OBS DISCH 30 MIN/LESS
== END 2022-12-14 13:00 | disposition home or self-care (01) ==
LOC: 3W 17:37 → ED 17:37 → SUATTDRO 12-13 03:02 → 3W 12-13 04:10
DX: Z79.899 Other long term (current) drug therapy; Z88.5 Allergy status to narcotic agent; Z88.0 Allergy status to penicillin; K51.00 Ulcerative (chronic) pancolitis without complications; Z87.891 Personal history of nicotine dependence; Z98.84 Bariatric surgery status; Z20.822 Contact with and (suspected) exposure to COVID-19; G62.9 Polyneuropathy, unspecified; E55.9 Vitamin D deficiency, unspecified; E53.8 Deficiency of other specified B group vitamins; K21.9 Gastro-esophageal reflux disease without esophagitis